=== PATIENT | male | born 1980 | race Caucasian/White ===

== ENCOUNTER 2019-08-17 20:10 | Emergency (ER) | payer BC, OTHER ==
[2019-08-17] MEDS ORDERED: Sodium Chloride 0.9% 1,000 ML IV ONE (20:31)
[2019-08-17] MEDS ORDERED: Aspirin 81 MG Tab.Chew PO ONE (20:32)
[2019-08-17 21:08] LABS: ANION GAP 20.7 mmol/L (5-15); CHLORIDE,CL 103 mmol/L (98-115); SODIUM,NA 143 mmol/L (136-145)
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
[2019-08-18 05:44] VITALS: BP 102/57; PULSE 82
--- NOTE | 2019-08-18 08:13 | CR ---
[id number] RAD/RAD Chest PA or AP 1V EXAM: SINGLE VIEW CHEST. INDICATION: CHEST PAIN COMPARISON: NO PREVIOUS SIMILAR EXAM IS AVAILABLE FINDINGS: The lungs are clear The cardiomediastinal contour is normal IMPRESSION: NO ACUTE PROCESS Woo Yu MD 08/18/19 [id number] Thank you for allowing us to participate in the care of your patient.
== END 2019-08-17 22:03 | disposition home or self-care (01) ==
LOC: KA.ED 20:10 → SUPCPDRO 20:10 → KA.ED 22:03
DX: F41.0 Panic disorder [episodic paroxysmal anxiety] (principal)
CPT/HCPCS: 36415; 71045; 80053; 84484; 85025; 93005; 96360; 99284; 99285-25; J7030

== ENCOUNTER 2019-09-29 06:37 | Emergency (ER) | payer MEDICAID ==
[2019-09-29 07:10] VITALS: BP 123/68; PULSE 81
[2019-09-29] MEDS: LORazepam 0.5 MG Tab PO ONE (07:36)
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
[2019-09-29 08:05] LABS: ANION GAP 15.7 mmol/L (5-15); CHLORIDE,CL 104 mmol/L (98-115); SODIUM,NA 143 mmol/L (136-145)
== END 2019-09-29 08:40 | disposition home or self-care (01) ==
LOC: KA.ED 06:37
DX: I49.1 Atrial premature depolarization (principal); F41.9 Anxiety disorder, unspecified; F32.9 Major depressive disorder, single episode, unspecified; G62.9 Polyneuropathy, unspecified; Z79.899 Other long term (current) drug therapy
CPT/HCPCS: 36415; 80048; 85025; 93005; 99284; 99285-25; A9270-GY

== ENCOUNTER 2019-10-08 01:30 | Emergency (ER) | payer MEDICAID ==
[2019-10-08] MEDS ORDERED: Aspirin 81 MG Tab.Chew PO ONE (02:28)
[2019-10-08 02:46] LABS: ANION GAP 16.8 mmol/L (5-15); CHLORIDE,CL 104 mmol/L (98-115); SODIUM,NA 140 mmol/L (136-145)
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
[2019-10-08 04:51] VITALS: BP 102/64; PULSE 65
--- NOTE | 2019-10-08 08:48 | CR ---
[id number] RAD/RAD Chest PA And Lateral EXAM: RAD Chest PA And Lateral INDICATION: CHRST PAIN COMPARISON: August 17, 2019. DISCUSSION: Cardiomediastinal silhouette is normal in size and contour. No infiltrate, effusion, pneumothorax, or edema. IMPRESSION: Negative examination of the chest. Sim Richey MD 10/08/19 0848 Thank you for allowing us to participate in the care of your patient.
== END 2019-10-08 03:15 | disposition home or self-care (01) ==
LOC: KA.ED 01:30
DX: R07.89 Other chest pain (principal); I49.1 Atrial premature depolarization; F41.9 Anxiety disorder, unspecified; F32.9 Major depressive disorder, single episode, unspecified; M19.90 Unspecified osteoarthritis, unspecified site; I49.9 Cardiac arrhythmia, unspecified; Z79.899 Other long term (current) drug therapy
CPT/HCPCS: 36415; 71046; 80053; 84484; 85025; 93005; 99284; 99285-25; A9270-GY

== ENCOUNTER 2021-05-13 23:02 | Emergency (ER) | payer MEDICAID ==
[2021-05-13] MEDS ORDERED: Ondansetron 4 MG/2 ML SDV IVPUSH ONE (23:18)
[2021-05-13] MEDS ORDERED: Sodium Chloride 0.9% 10 ML Syringe FLUSH PRN (23:20)
[2021-05-13 23:53] LABS: ANION GAP 13.4 mmol/L (5-15); CHLORIDE,CL 101 mmol/L (98-107); SODIUM,NA 138 mmol/L (136-145)
[2021-05-13 23:54] VITALS: BP 115/59; PULSE 70
== END 2021-05-14 00:24 | disposition home or self-care (01) ==
LOC: KA.ED 23:02
DX: R10.30 Lower abdominal pain, unspecified (principal); R31.0 Gross hematuria; Z91.018 Allergy to other foods
CPT/HCPCS: 36415; 80053; 81001; 85025; 96374; 99284; 99284-25; J2405

== ENCOUNTER 2021-05-14 21:21 | Emergency (ER) | payer MEDICAID ==
[2021-05-14] MEDS ORDERED: Ketorolac 30 MG/ML SDV IVPUSH ONE (21:39)
[2021-05-14] MEDS ORDERED: Sodium Chloride 0.9% 1,000 ML IV ONE (21:39)
[2021-05-14] MEDS ORDERED: Sodium Chloride 0.9% 10 ML Syringe FLUSH PRN (21:39)
[2021-05-14] MEDS ORDERED: Ondansetron 4 MG/2 ML SDV IVPUSH ONE (21:40)
[2021-05-14 22:25] LABS: ANION GAP 19.9 mmol/L (5-15); CHLORIDE,CL 101 mmol/L (98-107); SODIUM,NA 140 mmol/L (136-145)
[2021-05-14] MEDS ORDERED: Acetaminophen/HYDROcodone 325-10 MG Tab PO ONE (22:57)
[2021-05-15 00:01] VITALS: BP 128/74; PULSE 74
== END 2021-05-14 23:24 | disposition home or self-care (01) ==
LOC: KA.ED 21:21
DX: N13.2 Hydronephrosis with renal and ureteral calculous obstruction (principal); Z91.018 Allergy to other foods
CPT/HCPCS: 36415; 74176; 80048; 81001; 85025; 96374; 96375; 99284-25; A9270-GY; J1885; J2405; J7030